=== PATIENT | male | born 2000 | race Hispanic/Latino ===

== ENCOUNTER 2023-12-10 19:49 | Inpatient (IN) | payer SELFPAY ==
--- NOTE | ~2023-12-10 | CT_ITS ---
EXAMINATION: CT abdomen pelvis w con DATE: 12/11/2023 03:09 INDICATION: Epigastric tenderness and elevated lipase. TECHNIQUE: Computed tomography (CT) of the abdomen and pelvis was performed with 100 mL Omnipaque-350 intravenous contrast. Automated exposure control and iterative reconstruction technique were employe d. The dose-length product was 845.62 mGy-cm. COMPARISON: None FINDINGS: Mild dependent atelectasis in the bilateral lower lobes. Heart size normal. No pericardial or pleural effusion. Liver, gallbladder, spleen, bilateral adrenal glands and kidneys are normal. There is ther e is diffuse peripancreatic inflammatory stranding consistent with acute interstitial pancreatitis. N o peripancreatic fluid collection, abscess or free intraperitoneal gas or fluid. Bladder is normal. N o pathologically enlarged abdominal or pelvic lymphadenopathy. Small fat-containing left inguinal her lopez. Bones are unremarkable. IMPRESSION: 1. Radiographically uncomplicated acute interstitial pancreatitis. Reviewed, dictated and finalized at location A.
[2023-12-10 19:56] VITALS: BP 143/89; PULSE 76; RESP 20; TEMP 36.7; O2SAT 99
--- NOTE | 2023-12-10 22:42 | ED_ITS ---
HPI - General Adult General Chief complaint: Abdominal Pain Stated complaint: abd pain Time Seen by Provider: 12/10/23 22:36 Source: patient and freelance interpreter/translator Mode of arrival: ambulatory Limitations: language barrier History of Present Illness HPI narrative: This is a 23-year-old male who presents to the ED for chief complaint epigastric abdominal pain onset this morning. Patient reports 3 episodes of emesis with nausea but no diarrhea. Reports this is like his typical gastritis pain that he has been told about the past. Reports that alcohol and spicy sauce as well make it worse. He does report having 2-3 glasses of wine yesterday evening. Reports the pain is in the upper abdomen and does not radiate. Denies fevers, chills, GI bleeding symptoms, back pain, shortness of breath, chest pain, syncope, num bness or weakness. Related Data Allergies Allergy/AdvReac Type Severity Reaction Status Date / Time No Known Allergies Allergy Verified 12/10/23 20:07 Review of Systems Review of Systems: All systems as dictated in HPI Exam Narrative: GENERAL: Well-appearing, well-nourished, and in no acute distress. HEAD: Normocephalic, atraumatic. EYES: PERRLA and EOMI. ENT: Nares clear, no rhinorrhea or epistaxis. Mucous membranes moist. Oropharynx without tonsillar hypertrophy exudate or other lesions. NECK: Supple. No adenopathy or masses. CHEST: No respiratory distress. Clear to auscultation. No wheezes rales or rhonchi HEART: Regular rate and rhythm. No murmur heard. Normal peripheral pulses. ABDOMEN: Mild epigastric tenderness. Soft, otherwise nontender, nondistended, normal active bowel sounds. Negative flank tenderness bilaterally MSK: Normal range of motion. No edema. SKIN: Warm, dry, no rash. NEURO: Alert and oriented x4. No focal deficits. PSYCH: Normal mood and affect. Course Vital Signs Vital signs: Vital Signs Temperature 98.1 F 12/10/23 19:56 Pulse Rate 76 12/10/23 19:56 Respiratory Rate 20 12/10/23 19:56 Blood Pressure 143/89 H 12/10/23 19:56 Pulse Oximetry 99 12/10/23 19:56 Oxygen Delivery Room Air 12/10/23 19:56 Temperature 98.2 F 12/10/23 23:02 Pulse Rate 71 12/11/23 01:16 Respiratory Rate 18 12/11/23 01:16 Blood Pressure 157/97 H 12/11/23 01:16 Pulse Oximetry 100 12/11/23 01:16 Oxygen Delivery Room Air 12/10/23 19:56 Medical Decision Making MDM Narrative Medical decision making narrative: This is a 23 yo male who presents to the ED for chief complaint of abdominal pain beginning earlier this morning. Vitals are normal. Exam shows epigastric tenderness present. Lab work coming back for only a mildly elevated white count of 10.6. CMP shows elevated blood glucose at 2:17 a.m. but otherwise unremarkable. Lipase coming back remarkable at 3880. Urinalysis shows 3+ ketones, 2+ protein, 1+ glucose but no infection. CT abdomen pelvis with IV contrast official read from stat rad pending at the time of admission. Patient will be admitted for acute pancreatitis. He is understanding and agreeable with this plan. Will be admitted in stable condition after speaking with hospitalist Parisa JESUS Vital Signs Vital Signs: Vital Signs Temperature 98.1 F 12/10/23 19:56 Pulse Rate 76 12/10/23 19:56 Respiratory Rate 20 12/10/23 19:56 Blood Pressure 143/89 H 12/10/23 19:56 Pulse Oximetry 99 12/10/23 19:56 Oxygen Delivery Room Air 12/10/23 19:56 Temperature 98.2 F 12/10/23 23:02 Pulse Rate 71 12/11/23 01:16 Respiratory Rate 18 12/11/23 01:16 Blood Pressure 157/97 H 12/11/23 01:16 Pulse Oximetry 100 12/11/23 01:16 Oxygen Delivery Room Air 12/10/23 19:56 Lab Data 12/10/23 23:52 12/10/23 23:53 Labs: Lab Results 12/10/23 12/10/23 Range/Units 23:52 23:53 WBC 10.6 H (4.5-10.0) K/mm3 RBC 5.13 (4.6-6.20) M/mm3 Hgb 16.0 (14.0-18.0) g/dL Hct 43.7 (42.0-52.0) % MCV 85.2 (80-100) fl MCH 31.2 (26-34) pg MCHC 36.6 H (32-36) g/dl RDW 12.0 (11.5-14.5) % Plt Count 201 (150-375) k/mm3 MPV 9.8 (7.4-10.4) fl Immature Gran % (Auto) 1.1 H (0-0.5) % Neut % (Auto) 79.1 H (45.5-73.1) % Lymph % (Auto) 11.3 L (18.3-44.2) % [place] % (Auto) 7.9 (2.6-8.5) % Eos % (Auto) 0.3 (0-4.4) % Baso % (Auto) 0.3 (0.2-1.2) % Lymph # (Auto) 1.19 (0.9-3.2) K/mm3 [place] # (Auto) 0.8 H (0.1-0.6) K/mm3 Eos # (Auto) 0.0 (0-0.3) K/mm3 Baso # (Auto) 0.0 (0.0-0.1) K/mm3 Abs Immat Gran (auto) 0.12 H (0.00-0.031) K/mm3 Absolute Neuts (auto) 8.4 H (1.3-6.7) K/mm3 Absolute Nucleated RBC 0.000 (0.0-0.012) K/mm3 Nucleated RBC % 0.0 (0.0-0.2) % Sodium 137 (137-145) mmol/L Potassium 3.6 (3.4-5.0) mmol/L Chloride 100 (98-107) mmol/L Carbon Dioxide 26 (22-30) mmol/L Anion Gap 11 (4-12) mmol/L BUN 12 (9-20) mg/dL Creatinine 0.60 L (0.7-1.3) mg/dL Estim Creat Clear Calc 172 ml/min Estimated GFR > 60 (59 - ) Glucose 217 H (65-110) mg/dL Calcium 9.3 (8.4-10.2) mg/dL Total Bilirubin 1.3 (0.2-1.3) mg/dL AST 35 (17-59) U/L ALT 66 H (6-50) U/L Alkaline Phosphatase 82 (38-126) U/L Total Protein 8.0 (6.3-8.2) g/dL Albumin 4.7 (3.5-5.1) g/dL Triglycerides 193 H (<150) mg/dL Cholesterol 219 H (0-200) mg/dL LDL Cholesterol Direct 131 mg/dL HDL Direct 38 mg/dL Lipase 3880 H (23-300) U/L Urine Color Dark yellow (Yellow) Urine Appearance Cloudy H (Clear) Urine pH 6.0 (5.0-9.0) Ur Specific [place] 1.033 (1.001-1.035) Urine Protein 2+ H (Negative) mg/dL Urine Glucose (UA) 1+ H (Negative) mg/dL Urine Ketones 3+ H (Negative) mg/dL Ur Blood (Man) Negative (Negative) Urine Nitrate Negative (Negative) Urine Bilirubin Negative (Negative) Urine Urobilinogen 1.0 (<2.0) mg/dL Add Ur Microanalysis Reviewed Leukocyte Esterase Rfl Negative (Negative) AMANDA/UL Urine RBC 0-2 (0-2) /hpf Urine WBC 0-5 (0-3) /hpf Ur Squamous Epith Cells None seen (Few) /hpf Urine Bacteria None seen /hpf Urine Casts 3-5 Urine Mucus Present /lpf Ethyl Alcohol < 10 (<10) mg/dL Discharge Plan Discharge Clinical Impression: Pancreatitis, acute Patient Disposition: Still a Patient Condition: Stable Follow-up/Referrals: UNKNOWN,DOCTOR [Primary Care Provider] -
[2023-12-10 23:02] VITALS: BP 142/92; PULSE 85; RESP 16; TEMP 36.8; O2SAT 98
[2023-12-11 00:07] LABS: Basophils Percent Auto 0.3 % (0.2-1.2); Eosinophils Percent Auto 0.3 % (0-4.4); Hematocrit 43.7 % (42.0-52.0); Immature Granulocyte Absolute 0.12 K/mm3 (0.00-0.031); Immature Granulocyte Percent A 1.1 % (0-0.5); Lymphocytes Absolute Auto 1.19 K/mm3 (0.9-3.2); Lymphocytes Percent Auto 11.3 % (18.3-44.2); Mean Corpuscular HGB Conc 36.6 g/dl (32-36); Mean Corpuscular Hemoglobin 31.2 pg (26-34); Mean Corpuscular Volume 85.2 fl (80-100); Mean Platelet Volume 9.8 fl (7.4-10.4); Monocytes Absolute Auto 0.8 K/mm3 (0.1-0.6); Monocytes Percent Auto 7.9 % (2.6-8.5); Neutrophils Absolute Auto 8.4 K/mm3 (1.3-6.7); Neutrophils Percent Auto 79.1 % (45.5-73.1); Platelet Count Result 201 k/mm3 (150-375); Red Blood Count 5.13 M/mm3 (4.6-6.20); White Blood Count 10.6 K/mm3 (4.5-10.0)
[2023-12-11] MEDS: SODIUM CHLORIDE 0.9% IV 1,000 ML 999 ML IV CONT (00:12)
[2023-12-11] MEDS: BELLADONNA ALK/PHENOB ELIX 10 ML, MAG HYDROX/ALUMINUM HYD/SIMETH 30 ML, LIDOCAINE HCL 2... PO (00:13)
[2023-12-11] MEDS: FAMOTIDINE 20 MG/2 ML VIAL IV PUSH (00:13)
[2023-12-11 00:23] LABS: Alanine Aminotransferase 66 U/L (6-50); Albumin Level 4.7 g/dL (3.5-5.1); Alkaline Phosphatase 82 U/L (38-126); Anion Gap 11 mmol/L (4-12); Aspartate Amino Transferase 35 U/L (17-59); Bilirubin,Total 1.3 mg/dL (0.2-1.3); Blood Urea Nitrogen 12 mg/dL (9-20); Calcium 9.3 mg/dL (8.4-10.2); Carbon Dioxide 26 mmol/L (22-30); Chloride 100 mmol/L (98-107); Estimated CRCL calculation 172 ml/min; Estimated Glomerular Filt Rate > 60; Glucose 217 mg/dL (65-110); Potassium 3.6 mmol/L (3.4-5.0); Sodium 137 mmol/L (137-145)
[2023-12-11 00:32] LABS: Add Urine Microscopic? YES; Appearance Urine Cloudy (Clear); Bacteria Urine None Seen /hpf; Bilirubin Urine Negative (Negative); Blood Urine Negative (Negative); Color Urine Dark Yellow (Yellow); Glucose Urine UA 1+ mg/dL (Negative); Ketones Urine 3+ mg/dL (Negative); Leukocyte Esterase Ur Negative LEU/UL (Negative); Mucus Urine Present /lpf; Need Manual Microscopic Reviewed; Nitrate Urine Negative (Negative); Protein Urine 2+ mg/dL (Negative); RBC Urine 0-2 /hpf (0-2); Specific Grav Ur 1.033 (1.001-1.035); Squamous Epithelial Cell Urine None Seen /hpf (Few); WBC Urine 0-5 /hpf (0-3)
[2023-12-11 00:42] LABS: Lipase 3880 U/L (23-300)
[2023-12-11 01:16] VITALS: BP 157/97; PULSE 71; RESP 18; O2SAT 100
[2023-12-11] MEDS: LACTATED RINGERS 1,000 ML 999 ML IV CONT ×2 (01:27)
[2023-12-11] MEDS: HYDROmorphone HCL INJ (*CRX) 1 MG/ML SYR 0.5 MG IV PUSH ×2 (01:27→05:45)
[2023-12-11 01:29] LABS: Ethanol < 10 mg/dL (<10)
[2023-12-11 01:40] LABS: Cholesterol 219 mg/dL (0-200); HDL Direct 38 mg/dL; Triglycerides 193 mg/dL (<150)
[2023-12-11 01:51] LABS: LDL Cholesterol Direct 131 mg/dL
[2023-12-11 03:40] VITALS: BP 149/95; PULSE 94; RESP 18; O2SAT 98
[2023-12-11 04:45] VITALS: BP 149/91; PULSE 76; RESP 16; TEMP 36.3; O2SAT 99
[2023-12-11 05:00] VITALS: BMI 31.3
--- NOTE | 2023-12-11 05:25 | ADMGEN ---
This patient, Kenny steve, was admitted to 3 [facility] Surg Room 313-01. Patient/family oriented to hospital policies and general routines including ID bracelet, bed and alarms, visiting hours, pain management, procedures, bathroom and other care routines, personal items, smoking policy, room service/diet, and visiting hours. Information on how to activate the Rapid Response Team has been discussed. Patient/Family are encouraged to report perceived risks to care and to ask questions if they do not understand what they are told or what they should do.
[2023-12-11] MEDS: SODIUM CHLORIDE 0.9% IV 1,000 ML 100 ML IV CONT (05:45)
--- NOTE | 2023-12-11 05:50 | PC.NURSE ---
Pt. doses not know his home meds and will have his bring a list in.
--- NOTE | 2023-12-11 08:28 | P.HP_ITS ---
H&P: HPI History of Present Illness Date/Time: 12/11/23 08:28 Chief Complaint: epigastric pain with nausea and vomiting Narrative: 23-year-old male who presents to the ED for chief complaint epigastric abdomin al pain onset this morning. Patient reports 3 episodes of emesis with nausea but no diarrhea. patient has a history gastritis reports that alcohol and spicy sauce is will make it worse. the other day he was drinking wine and when he woke up he had severe upper gastric pain and came to the emergency room. In the emergency room has lipase is 3880, ALT 66, and hyperglycemic. Ethanol level is negative. CT shows Radiographically uncomplicated acute interstitial pancreatitis. Patient was given 2 L of LR and started on IV fluids for hydration. Review of Systems Review of Systems: 12 systems were reviewed and are negative except for as per HPI. [facility] Social History Social History Smoking status: Current some day smoker Tobacco type: cigarettes Alcohol intake: current Drinks per week: 14 Substance use: never Do You Feel Safe in your Home?: Yes Lack of Transportation: No Lack of Food: Never True Current Housing: I Have Housing Concerned About Future Housing: No Difficulty Paying Gas/Electric Bills: No Difficulty Paying for Meds: No Currently Unemployed: No Education: Grade School Difficulty w/ Childcare or Family Care: No Spiritual care concerns: No Meds Home Medications and Allergies Allergies Allergy/AdvReac Type Severity Reaction Status Date / Time No Known Allergies Allergy Verified 12/10/23 20:07 Vital Signs Vital Signs - 24 hr 12/10/23 19:56 12/10/23 23:02 12/11/23 01:16 Temperature 98.1 F 98.2 F Pulse Rate 76 85 71 Respiratory Rate 20 16 18 Blood Pressure 143/89 H 142/92 H 157/97 H Pulse Oximetry 99 98 100 Oxygen Delivery Room Air 12/11/23 03:40 12/11/23 06:19 12/11/23 04:45 Temperature 97.3 F L Pulse Rate 94 76 Respiratory Rate 18 16 Blood Pressure 149/95 H 149/91 H Pulse Oximetry 98 99 Oxygen Delivery Room Air Exam Narrative: General: well appearing, appears stated age. HEENT: normocephalic, atraumatic. Mucous membranes moist. EOMI, PERRLA, bilateral sclera anicteric, no conjunctival injection. Neck supple without JVD, lymphadenopathy, or bruit. Respiratory: clear to ascultation bilaterally. No rales/rhonic/wheezes. Cardiovascular: Regular rate and rhythm, normal S1-S2 upon ascultation. No murmurs, rubs, or clicks. PMI is nondisplaced, capillary refill less than 3 second. Abdomen: Soft, round, no pulsatile masses, nondistended and nontender. No rebound, no guarding. No CVA tenderness, no hepatosplenomegaly. Bowel sounds present to all four quadrants. No high pitch or tinkling sounds, resonant to percussion. Extremities: No cyanosis, clubbing, or edema present. Pulses are palpable 2/2. Active ROM to all four extremities. Neuro: Alert and orientated x 4. PERRLA. Cranial nerves 2-12 intact without focal deficit. Skin: Warm, dry, and intact, without rash, erythema, or lesion. Psych: pleasant, cooperative, normal speech, normal affect, no hallucinations, no dysarthia H&P: Results Labs Labs: Short CBC 12/10/23 Range/Units 23:52 WBC 10.6 H (4.5-10.0) K/mm3 Hgb 16.0 (14.0-18.0) g/dL Hct 43.7 (42.0-52.0) % Plt Count 201 (150-375) k/mm3 BMP 12/10/23 23:53 Sodium 137 Potassium 3.6 Chloride 100 Carbon Dioxide 26 BUN 12 Creatinine 0.60 L Glucose 217 H Calcium 9.3 Liver Function 12/10/23 Range/Units 23:53 Total Bilirubin 1.3 (0.2-1.3) mg/dL AST 35 (17-59) U/L ALT 66 H (6-50) U/L Alkaline Phosphatase 82 (38-126) U/L Albumin 4.7 (3.5-5.1) g/dL Urine 12/10/23 Range/Units 23:52 Urine Color Dark yellow (Yellow) Urine Appearance Cloudy H (Clear) Urine pH 6.0 (5.0-9.0) Ur Specific [place] 1.033 (1.001-1.035) Urine Protein 2+ H (Negative) mg/dL Urine Glucose (UA) 1+ H (Negative) mg/dL Assessment and Plan Assessment and plan (1) Pancreatitis, acute: Code(s): K85.90 - Acute pancreatitis without necrosis or infection, unspecified Status: Acute Assessment and Plan: trend lactate LR 200 n.p.o. okay for ice chips Zofran CIWA protocol with Librium and thiamine monitor for ETOH withdrawals Quality VTE Prophylaxis VTE prophylaxis: mechanical ordered Hospitalist MIPS Advance Care Plan I have confirmed that the patient's Advanced Care Plan is present, code status is documented, or surrogate decision maker is listed in patient medical record.: Yes Medication Reconciliation I have utilized all available resources to obtain, update and review the patients current medications (includes all prescriptions, OTC, herbals, cannabis, and nutritional supplements).: Yes
[2023-12-11] MEDS: ENOXAPARIN 40 MG/0.4 ML SYRINGE SUB-Q (09:07)
[2023-12-11] MEDS: LACTATED RINGERS 1,000 ML 250 ML IV CONT ×4 (09:07→23:28)
[2023-12-11] MEDS: THIAMINE HCL 200 MG/2 ML VIAL 100 MG IV PUSH (09:07)
[2023-12-11 09:45] LABS: Magnesium 1.9 mg/dL (1.6-2.3)
[2023-12-11 09:48] LABS: Partial Thromboplastin Time 25.6 Seconds (22.3-36.8)
[2023-12-11 09:51] LABS: Phosphorus 4.2 mg/dL (2.5-4.5)
[2023-12-11] MEDS: chlordiazePOXIDE (*CRX) 25 MG CAPSULE PO ×3 (11:44→23:34)
[2023-12-11 12:32] LABS: Glucose Point of Care 164 mg/dl (65-105)
[2023-12-11 14:00] VITALS: BP 121/64; PULSE 80; RESP 16; TEMP 36.6; O2SAT 99
[2023-12-11 18:01] LABS: Glucose Point of Care 143 mg/dl (65-105)
[2023-12-11 20:45] VITALS: BP 138/81; PULSE 88; RESP 20; TEMP 36.9; O2SAT 96
[2023-12-11 23:13] LABS: Glucose Point of Care 121 mg/dl (65-105)
[2023-12-12] MEDS: HYDROmorphone HCL INJ (*CRX) 1 MG/ML SYR 0.5 MG IV PUSH ×6 (00:55→22:27)
--- NOTE | 2023-12-12 01:31 | PC.NURSE ---
Daylight Savings Time For Daylight Savings Time Ending in the Fall - Clocks are moved back. For Daylight Savings Time Beginning in the Spring - Clocks are moved ahead. For [facility], the time of change occurs at 0200 hrs. Time is taken from the gaming surveillance observer. This entry on the patient's chart recognizes the change in time reflected during documentation. Example: 2 entries for vital signs may be charted for 0200 hrs.
[2023-12-12] MEDS: LACTATED RINGERS 1,000 ML 250 ML IV CONT ×3 (04:16→14:41)
[2023-12-12 05:08] LABS: Glucose Point of Care 139 mg/dl (65-105)
[2023-12-12] MEDS: chlordiazePOXIDE (*CRX) 25 MG CAPSULE PO ×3 (05:50→16:17)
[2023-12-12 05:54] VITALS: BP 140/90; PULSE 85; RESP 20; TEMP 36.8; O2SAT 98
[2023-12-12] MEDS: ENOXAPARIN 40 MG/0.4 ML SYRINGE SUB-Q (08:15)
[2023-12-12] MEDS: THIAMINE HCL 200 MG/2 ML VIAL 100 MG IV PUSH (08:16)
[2023-12-12 08:27] LABS: Lipase 1663 U/L (23-300)
[2023-12-12 12:09] LABS: Glucose Point of Care 109 mg/dl (65-105)
[2023-12-12 14:00] VITALS: BP 139/89; PULSE 82; RESP 16; TEMP 37.2; O2SAT 98
--- NOTE | 2023-12-12 14:20 | PM.IMPN ---
Progress Note: A&P Assessment and Plan (1) Pancreatitis, acute: Code(s): K85.90 - Acute pancreatitis without necrosis or infection, unspecified Status: Acute Assessment and Plan: liquid diet CT AP no obstruciton trigs 193 PRN pain control and IVF Zofran CIWA protocol with Librium and thiamine monitor for ETOH withdrawals Plan DVT prophylaxis on Sq lovenox Subjective Date/time seen: 12/12/23 14:20 Interval history: Comfortable at bedside noted abd pain is 2/10 this mornign however worse with oral intake Review of Systems Review of Systems: 12 systems were reviewed and are negative except for as per HPI. Exam Narrative: General: well appearing, appears stated age. HEENT: normocephalic, atraumatic. Mucous membranes moist. EOMI, PERRLA, bilateral sclera anicteric, no conjunctival injection. Neck supple without JVD, lymphadenopathy, or bruit. Respiratory: clear to ascultation bilaterally. No rales/rhonic/wheezes. Cardiovascular: Regular rate and rhythm, normal S1-S2 upon ascultation. No murmurs, rubs, or clicks. PMI is nondisplaced, capillary refill less than 3 second. Abdomen: Soft, round, no pulsatile masses, nondistended and nontender. No rebound, no guarding. No CVA tenderness, no hepatosplenomegaly. Bowel sounds present to all four quadrants. No high pitch or tinkling sounds, resonant to percussion. Extremities: No cyanosis, clubbing, or edema present. Pulses are palpable 2/2. Active ROM to all four extremities. Neuro: Alert and orientated x 4. PERRLA. Cranial nerves 2-12 intact without focal deficit. Skin: Warm, dry, and intact, without rash, erythema, or lesion. Psych: pleasant, cooperative, normal speech, normal affect, no hallucinations, no dysarthia Objective Data Vital Signs Vital Signs: Vital Signs - 24 hr 12/11/23 20:45 12/11/23 20:00 12/12/23 05:54 Temperature 98.4 F 98.2 F Pulse Rate 88 85 Respiratory Rate 20 20 Blood Pressure 138/81 140/90 Pulse Oximetry 96 98 Oxygen Delivery Room Air 12/12/23 08:15 Temperature Pulse Rate Respiratory Rate Blood Pressure Pulse Oximetry Oxygen Delivery Room Air Intake/Output Intake/Output: Intake & Output 12/09/23 12/10/23 12/11/23 12/12/23 23:59 23:59 23:59 22:59 Intake Total 6050 2120 Balance 6050 2120 Meds/Results Medications: Active Medications Generic Name Dose Route Start Last Admin Trade Name Freq PRN Reason Stop Dose Admin Chlordiazepoxide HCl 25 mg 12/11/23 12:00 12/12/23 11:35 Chlordiazepoxide (*Crx) 25 Mg Capsule PO 25 mg Q6HR JAYE Administration Enoxaparin Sodium 40 mg 12/11/23 09:00 12/12/23 08:15 Enoxaparin 40 Mg/0.4 Ml Syringe SUB-Q 40 mg DAILY JAYE Administration Hydromorphone HCl 0.5 mg 12/11/23 03:31 12/12/23 08:16 Hydromorphone Hcl Inj (*Crx) 1 Mg/Ml Syr IV PUSH 0.5 mg Q4H PRN Administration Pain Rated 7-10 Lactated Ringer's 1,000 mls @ 200 mls/hr 12/11/23 08:30 12/12/23 11:34 Lr - Lactated Ringers Iv IV CONT 250 mls/hr .Q5H JAYE Administration Ondansetron HCl 4 mg 12/11/23 03:31 Ondansetron Inj 4 Mg/2 Ml Vial IV PUSH Q4H PRN Nausea Thiamine HCl 100 mg 12/11/23 09:00 12/12/23 08:16 Thiamine Hcl 200 Mg/2 Ml Vial IV PUSH 100 mg DAILY JAYE Administration Radiology Results: ITS Impressions Abdomen/Pelvis CT 12/11/23 09:59 IMPRESSION: 1. Radiographically uncomplicated acute interstitial pancreatitis. Labs Labs: Laboratory Results - last 24 hr 12/11/23 12/11/23 12/12/23 17:58 23:09 04:27 POC Capillary Glucose 143 H 121 H 139 H Lipase 12/12/23 12/12/23 06:23 11:57 POC Capillary Glucose 109 H Lipase 1663 H
[2023-12-12] MEDS: ONDANSETRON INJ 4 MG/2 ML VIAL IV PUSH (17:29)
[2023-12-12] MEDS: LACTATED RINGERS 1,000 ML 100 ML IV CONT (20:33)
[2023-12-12 21:55] VITALS: BP 151/94; PULSE 78; RESP 12; TEMP 37; O2SAT 95
[2023-12-12 22:49] LABS: Glucose Point of Care 140 mg/dl (65-105)
[2023-12-13] MEDS: chlordiazePOXIDE (*CRX) 25 MG CAPSULE PO ×2 (00:19→05:07)
[2023-12-13 00:41] LABS: Glucose Point of Care 121 mg/dl (65-105)
[2023-12-13] MEDS: HYDROmorphone HCL INJ (*CRX) 1 MG/ML SYR 0.5 MG IV PUSH (02:11)
[2023-12-13] MEDS: LACTATED RINGERS 1,000 ML 100 ML IV CONT (05:06)
[2023-12-13 06:00] VITALS: BP 143/97; PULSE 81; RESP 22; TEMP 36.3; O2SAT 99
[2023-12-13 06:00] LABS: Glucose Point of Care 109 mg/dl (65-105)
[2023-12-13 07:11] LABS: Basophils Absolute Auto 0.1 K/mm3 (0.0-0.1); Basophils Percent Auto 0.6 % (0.2-1.2); Eosinophils Absolute Auto 0.1 K/mm3 (0-0.3); Eosinophils Percent Auto 1.3 % (0-4.4); Hematocrit 39.9 % (42.0-52.0); Hemoglobin 14.5 g/dL (14.0-18.0); Immature Granulocyte Absolute 0.08 K/mm3 (0.00-0.031); Lymphocytes Absolute Auto 1.62 K/mm3 (0.9-3.2); Lymphocytes Percent Auto 19.5 % (18.3-44.2); Mean Corpuscular HGB Conc 36.3 g/dl (32-36); Mean Corpuscular Hemoglobin 31.1 pg (26-34); Mean Corpuscular Volume 85.6 fl (80-100); Mean Platelet Volume 9.8 fl (7.4-10.4); Monocytes Absolute Auto 0.8 K/mm3 (0.1-0.6); Monocytes Percent Auto 9.7 % (2.6-8.5); Neutrophils Absolute Auto 5.6 K/mm3 (1.3-6.7); Neutrophils Percent Auto 67.9 % (45.5-73.1); Platelet Count Result 184 k/mm3 (150-375); Red Blood Count 4.66 M/mm3 (4.6-6.20); Red Cell Distribution Width 11.7 % (11.5-14.5); White Blood Count 8.3 K/mm3 (4.5-10.0)
[2023-12-13 07:25] LABS: Alanine Aminotransferase 41 U/L (6-50); Albumin Level 4.4 g/dL (3.5-5.1); Alkaline Phosphatase 63 U/L (38-126); Anion Gap 16 mmol/L (4-12); Aspartate Amino Transferase 24 U/L (17-59); Bilirubin,Total 1.2 mg/dL (0.2-1.3); Blood Urea Nitrogen 8 mg/dL (9-20); Calcium 8.8 mg/dL (8.4-10.2); Carbon Dioxide 23 mmol/L (22-30); Chloride 99 mmol/L (98-107); Estimated CRCL calculation 172 ml/min; Estimated Glomerular Filt Rate > 60; Glucose 102 mg/dL (65-110); Magnesium 2.1 mg/dL (1.6-2.3); Potassium 3.4 mmol/L (3.4-5.0); Sodium 138 mmol/L (137-145)
[2023-12-13] MEDS: THIAMINE HCL 200 MG/2 ML VIAL 100 MG IV PUSH (08:45)
[2023-12-13] MEDS: ENOXAPARIN 40 MG/0.4 ML SYRINGE SUB-Q (08:45)
[2023-12-13 08:50] VITALS: BP 142/92; PULSE 79; O2SAT 100
--- NOTE | 2023-12-13 11:33 | P.DS_ITS ---
DS: Admitting Diagnosis Discharge Date 12/13/2023 Admitting Diagnosis abd pain DS: Discharge Diagnosis Discharge Diagnosis (1) Pancreatitis, acute: Code(s): K85.90 - Acute pancreatitis without necrosis or infection, unspecified Status: Acute DS: Summary Hospital Course Hospital Course: 23-year-old male who presents to the ED for chief complaint epigastric abdominal pain onset this morning. Patient reports 3 episodes of emesis with nausea but no diarrhea. patient has a history gastritis reports that alcohol and spicy sauce is will make it worse. the other day he was drinking wine and when he woke up he had severe upper gastric pain and came to the emergency room. In the emergency room has lipase is 3880, ALT 66, and hyperglycemic. Ethanol level is negative. CT shows Radiographically uncomplicated acute interstitial pancreatitis. Patient was given 2 L of LR and started on IV fluids for hydration. patient was placed on IVF, PRN pain control and NPO. eventually transitioned to clear liquid and patient now tolerating regular diet. noted that pain has resolved this morning. patient counseled about alcohol consumption and discharged on Thiamine, Folic acid and PRN norco #6 tabs F/u with PCP in 3-5 days. Time Spent with Patient Time attestation: Total time spent providing and/or coordinating discharge services: DS: Data Data Completed and Pending Labs on day of discharge: Labs from last 24 hours 12/13/23 12/13/23 12/13/23 06:40 05:55 00:39 WBC 8.3 RBC 4.66 Hgb 14.5 Hct 39.9 L MCV 85.6 MCH 31.1 MCHC 36.3 H RDW 11.7 Plt Count 184 MPV 9.8 Immature Gran % (Auto) 1.0 H Neut % (Auto) 67.9 Lymph % (Auto) 19.5 [place] % (Auto) 9.7 H Eos % (Auto) 1.3 Baso % (Auto) 0.6 Lymph # (Auto) 1.62 [place] # (Auto) 0.8 H Eos # (Auto) 0.1 Baso # (Auto) 0.1 Abs Immat Gran (auto) 0.08 H Absolute Neuts (auto) 5.6 Absolute Nucleated RBC 0.000 Nucleated RBC % 0.0 Sodium 138 Potassium 3.4 Chloride 99 Carbon Dioxide 23 Anion Gap 16 H BUN 8 L Creatinine 0.60 L Estim Creat Clear Calc 172 Estimated GFR > 60 Glucose 102 POC Capillary Glucose 109 H 121 H Calcium 8.8 Magnesium 2.1 Total Bilirubin 1.2 AST 24 ALT 41 Alkaline Phosphatase 63 Total Protein 8.0 Albumin 4.4 12/12/23 12/12/23 19:55 11:57 WBC RBC Hgb Hct MCV MCH MCHC RDW Plt Count MPV Immature Gran % (Auto) Neut % (Auto) Lymph % (Auto) [place] % (Auto) Eos % (Auto) Baso % (Auto) Lymph # (Auto) [place] # (Auto) Eos # (Auto) Baso # (Auto) Abs Immat Gran (auto) Absolute Neuts (auto) Absolute Nucleated RBC Nucleated RBC % Sodium Potassium Chloride Carbon Dioxide Anion Gap BUN Creatinine Estim Creat Clear Calc Estimated GFR Glucose POC Capillary Glucose 140 H 109 H Calcium Magnesium Total Bilirubin AST ALT Alkaline Phosphatase Total Protein Albumin Discharge Plan Discharge Attending physician on discharge: Milena Hanna Discharging Clinician: Milena Hanna Anticipated Discharge Date/Time: 12/13/23 11:25 Patient Disposition: Home, Self-Care Activity: as tolerated Diet: as tolerated Patient Instructions: Antibiotic Form Stand Alone Forms: General Discharge Information Follow-up/Referrals: Ej Harkins MD [Physician] - (F/u with PCP in 3-5 days ) Discharge Medications: New thiamine HCl (vitamin B1) 100 mg tablet 100 mg PO DAILY Qty: 30 0RF folic acid 1 mg tablet 1 mg PO DAILY Qty: 30 0RF hydrocodone-acetaminophen 5-325 mg tablet 1 tablet PO Q8H PRN (Reason: pain) 6 Days Qty: 7 0RF Date of admission: 12/11/23 09:03 Primary Care Provider: UNKNOWN,DOCTOR Admitting Provider: Milena Hanna Attending physician on admission: Milena Hanna Condition: Stable
[2023-12-13 11:47] LABS: Glucose Point of Care 124 mg/dl (65-105)
--- NOTE | 2023-12-13 12:25 | PC.NURSE ---
Patient stated he is on Lantus insulin.Called patients pharmacy [facility] and [facility] to confirm. Patient birthday 2000. Returned to patient room and asked with the interceptor his birthday. He confirmed 2000. Admitting called.
== END 2023-12-13 12:25 | disposition home or self-care (01) | DRG 282 ==
LOC: ANHED 12-11 03:54 → ANH3MEDSUR 12-11 04:32
PROVIDERS: Nurse Practitioner Gerontology; Physician Assistant; Admitting Provider Internal Medicine; Emergency Provider Emergency Medicine; Visit Provider Internal Medicine
DX: K85.80 Other acute pancreatitis without necrosis or infection (principal); F17.210 Nicotine dependence, cigarettes, uncomplicated; R73.9 Hyperglycemia, unspecified
CPT/HCPCS: 36415; 74177; 80053; 80061; 81001; 82077; 82948; 83690; 83735; 84100; 85025; 85730; 96361; 96374; 96375; 99285; A9270; G0378; J1171; J1650; J2405; J3411; J7030; J7120; Q9967